=== PATIENT | male | born 1985 | race American Indian/Alaskan Native ===

== ENCOUNTER 2022-01-09 20:22 | Emergency (ER) | payer OTHER ==
[2022-01-09 22:11] VITALS: BP 136/82
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
== END 2022-01-10 00:23 | disposition home or self-care (01) ==
LOC: ED 20:22 → EEVIPCON 20:22 → ED 01-10 00:23
DX: S01.511A Laceration without foreign body of lip, initial encounter (principal); J45.909 Unspecified asthma, uncomplicated; Z87.891 Personal history of nicotine dependence; Y04.8XXA Assault by other bodily force, initial encounter; Y93.89 Activity, other specified; Y92.89 Other specified places as the place of occurrence of the external cause; Y99.8 Other external cause status
CPT/HCPCS: 99282; 99283